=== PATIENT | male | born 1985 | race African-American/Black ===

== ENCOUNTER 2020-03-19 04:42 | Emergency (ER) | payer SELFPAY ==
[~2020-03-19] VITALS: Ht 172.7 cm; Wt 77.1 kg
[2020-03-19 04:55] VITALS: BP 118/65
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
[2020-03-19] MEDS ORDERED: ALBUTEROL2.5 MG/3 M HHN (05:08)
[2020-03-19 05:09] LABS: HEMATOCRIT 36.5 % (42.0-52.0); HEMOGLOBIN 11.6 G/DL (14.2-18.0); LYMPHOCYTES % (AUTO) 24.2 % (20.0-45.0); MEAN CORPUSCULAR VOLUME 76 FL (80-99); MONOCYTES % (AUTO) 10.6 % (1.0-10.0); NEUTROPHILS % (AUTO) 53.2 % (45.0-75.0); PLATELET COUNT 235 K/UL (150-450); RED BLOOD COUNT 4.79 M/UL (4.70-6.10); RED CELL DISTRIBUTION WIDTH 12.5 % (11.6-14.8); WHITE BLOOD COUNT 6.2 K/UL (4.8-10.8)
[2020-03-19] MEDS ORDERED: PERMETHRIN60 GM TOPIC (05:10)
[2020-03-19 05:23] LABS: ANION GAP 5 mmol/L (5-15); BLOOD UREA NITROGEN 21 mg/dL (7-18); CALCIUM 8.6 MG/DL (8.5-10.1); CARBON DIOXIDE 30 MMOL/L (21-32); CHLORIDE 103 MMOL/L (98-107); CREATININE 0.9 MG/DL (0.55-1.30); SODIUM 138 MMOL/L (136-145)
[2020-03-19 05:25] LABS: POTASSIUM 5.3 MMOL/L (3.5-5.1)
[2020-03-19 05:28] LABS: ALANINE AMINOTRANSFERASE 32 U/L (12-78); ALBUMIN 3.5 G/DL (3.4-5.0); ALKALINE PHOSPHATASE 85 U/L (46-116); ASPARTATE AMINO TRANSFERASE 51 U/L (15-37); BILIRUBIN,TOTAL 0.4 MG/DL (0.2-1.0)
--- NOTE | 2020-03-19 05:41 | Diagnostic Imaging Report ---
EXAM: XR Chest, 1 View CLINICAL HISTORY: Chest pain TECHNIQUE: Frontal view of the chest. COMPARISON: No relevant prior studies available. FINDINGS: Lungs: Unremarkable. No consolidation. Pleural space: Unremarkable. No pneumothorax. Heart: Unremarkable. No cardiomegaly. Mediastinum: Unremarkable. Bones/joints: Unremarkable. IMPRESSION: No acute cardiopulmonary process.
[2020-03-19 07:06] VITALS: BP 112/68
[2020-03-19 07:08] VITALS: BP 120/89
[2020-03-19 08:31] VITALS: BP 122/80
== END 2020-03-19 08:36 | disposition home or self-care (01) ==
LOC: EDBD 04:42 → EMR 05:05
DX: R07.9 Chest pain, unspecified (principal); B86 Scabies
CPT/HCPCS: 36415; 71045; 80053; 84484; 85025; 93005; 96360; 99284; G0480; J7030